=== PATIENT | female | born 1975 | race Caucasian/White ===

== ENCOUNTER 2016-10-01 17:31 | Emergency (ER) | payer OTHER ==
--- NOTE | ~2016-10-01 | EKG ---
PATIENT: TIMMY MOTA UNIT #: [id number] Ventricular Rate: 125 BPM Atrial Rate: 125 BPM P-R Interval: 148 ms QRS Duration: 70 ms Q-T Interval: 304 ms QTC Calculation(Bezet): 438 ms P [place]: 49 degrees Calculated R [place]: 6 degrees Calculated T [place]: 47 degrees Diagnosis Line: Sinus tachycardia Diagnosis Line: Otherwise normal ECG Diagnosis Line: When compared with ECG of 16-SEP-2014 16:55, Diagnosis Line: No significant change was found Diagnosis Line: Confirmed by MITCHEL DUONG MD ([id number]) on 10/02/2016 Diagnosis Line: 8:25:48 PM INTERPRETING MD: AD EFRRO
--- NOTE | ~2016-10-01 | CT98 ---
[facility] A Service of [facility] RADIOLOGY TEXT RESULTS PATIENT: TIMMY MOTA LOCATION: [facility] : 75 UNIT #: [id number] AGE: [address]: Ayan Spain MD SEX: F ORDER DR: [id number] [facility] [address] [place], [place] [address] [id number] E MR#: [id number] Acc #: [id number] NAME: TIMMY MOTA : 1975 SEX: F STUDY DATE/TIME: 10/01/2016 19:30 UNIT: [facility] ROOM: STUDY DESCRIPTION: CT Lumbar Spine Wo Cont Attending Physician: Ayan Spain M.D. Ordering Physician: Mariah Wilburn M.D. Primary Care Physician: Primary Care Physician No MEDICAL IMAGING REPORT This report is preliminary unless electronic signature is present EXAM CT lumbar spine without contrast DATE: 10/01/2016 HISTORY Cannot walk since yesterday. Back pain. Left-side body weakness and ataxia. No documented injury. COMPARISON None. PROCEDURE 2 mm noncontrast axial images through the lumbar spine. Sagittal and coronal reformatted images were obtained. This CT exam was performed with one or more of the following radiation dose reduction techniques: automatic exposure control, adjustment of mA and/or kV according to patient size, and iterative reconstruction. FINDINGS No lumbar spine fracture or subluxation is seen. Disc space height appears preserved. No high-grade canal or foraminal stenosis is evident. Incidental note is made of a nonobstructing stone in the right upper renal pole measuring 4 mm. Cholecystectomy. What is thought to be a phlebolith is seen within the retroperitoneum of the right mid abdomen adjacent to it, but not definitely within the right ureter, and this is unchanged from 12/05/2014. Benign angiomyolipoma within the left mid kidney (Hounsfield units -30) measures about 1 cm and is unchanged from 12/05/2014 CT abdomen. IMPRESSION 1. Normal lumbar spine. [facility] A Service [facility] RADIOLOGY TEXT RESULTS PATIENT: TIMMY MOTA LOCATION: [facility] : 75 UNIT #: [id number] AGE: [address]: Ayan Spain MD SEX: F ORDER DR: 2. Benign left renal angiomyolipoma measuring about a centimeter. 3. Nonobstructing stone in the right upper renal pole measuring 4 mm. 4. Cholecystectomy. Dictated by... Kena Tsai M.D. THIS IS AN ELECTRONICALLY VERIFIED REPORT Kena Tsai M.D. at 10/02/2016 10:03 AM TYLER/stephanie TD: 10/01/2016 22:17 JOB #: [id number] MEDICAL IMAGING REPORT Page 1 of 1 COPY
--- NOTE | ~2016-10-01 | MR18 ---
[facility] A Service of [facility] RADIOLOGY TEXT RESULTS PATIENT: TIMMY MOTA LOCATION: [facility] : 75 UNIT #: [id number] AGE: [address]: Ayan Spain MD SEX: F ORDER DR: [id number] [facility] [address] [place], [place] [address] [id number] E MR#: [id number] Acc #: [id number] NAME: TIMMY MOTA : 1975 SEX: F STUDY DATE/TIME: 10/01/2016 22:47 UNIT: [facility] ROOM: STUDY DESCRIPTION: MR Brain Wo Contrast Attending Physician: Ayan Spain M.D. Ordering Physician: Mariah Wilburn M.D. Primary Care Physician: Primary Care Physician No MRI CENTER REPORT This report is preliminary unless electronic signature is present. EXAM MRI brain without contrast INDICATION Left foot drop since yesterday. Headache for the past week. PROCEDURE Multiplanar, multisequence MR imaging of the brain without the administration of contrast. COMPARISON None. FINDINGS No restricted diffusion. Normal brain volume. No acute hemorrhage. No midline shift, extraaxial fluid collection or hydrocephalus. Flow voids of major intracranial vessels are intact. A mucous retention cyst in the left maxillary sinus. No acute hemorrhage. IMPRESSION Mucous retention cyst in the left maxillary sinus. Otherwise negative MRI of the brain. Dictated by... Pete Smith M.D. THIS IS AN ELECTRONICALLY VERIFIED REPORT Pete Smith M.D. at 10/02/2016 10:26 PM EED/stephanie [facility] A Service of [facility] RADIOLOGY TEXT RESULTS PATIENT: TIMMY MOTA LOCATION: [facility] : 75 UNIT #: [id number] AGE: [address]: Ayan Spain MD SEX: F ORDER DR: TD: 10/02/2016 01:25 JOB #: [id number] MRI CENTER REPORT Page 1 of 1 COPY
--- NOTE | ~2016-10-01 | CT122 ---
[facility] A Service of [facility] RADIOLOGY TEXT RESULTS PATIENT: TIMMY MOTA LOCATION: [facility] : 75 UNIT #: [id number] AGE: [address]: Ayan Spain MD SEX: F ORDER DR: [id number] [place] [id number] [facility] [place], [place] [address] [id number] E MR#: [id number] Acc #: [id number] NAME: TIMMY MOTA : 1975 SEX: F STUDY DATE/TIME: 10/01/2016 19:30 UNIT: [facility] ROOM: STUDY DESCRIPTION: CT Thoracic Spine Wo Cont Attending Physician: Ayan Spain M.D. Ordering Physician: Mariah Wilburn M.D. Primary Care Physician: Primary Care Physician No MEDICAL IMAGING REPORT This report is preliminary unless electronic signature is present EXAM CT thoracic spine without contrast DATE 10/01/2016 HISTORY Cannot walk since yesterday. Back pain. Left side body weakness and ataxia. No documented injury. COMPARISON None. TECHNIQUE This CT exam was performed with one or more of the following radiation dose reduction techniques: Automatic exposure control, adjustment of mA and/or kV according to patient size, and iterative reconstruction. FINDINGS No thoracic vertebral body fracture or subluxation. No suspicious osteolytic or osteoblastic lesions are identified. No definite high-grade canal stenosis is visualized. Incidental note is made of cholecystectomy and a small, nonobstructing right renal stone. IMPRESSION 1. Normal thoracic spine. 2. Cholecystectomy and small nonobstructing right renal stone. Dictated by... Kena Tsai M.D. THIS IS AN ELECTRONICALLY VERIFIED REPORT [facility] A Service of [facility] RADIOLOGY TEXT RESULTS PATIENT: TIMMY MOTA LOCATION: [facility] : 75 UNIT #: [id number] AGE: [address]: Ayan Spain MD SEX: F ORDER DR: Kena Tsai M.D. at 10/02/2016 10:03 AM TYLER/savage TD: 10/01/2016 22:18 JOB #: [id number] MEDICAL IMAGING REPORT Page 1 of 1 COPY
--- NOTE | ~2016-10-01 | CR169 ---
[facility] A Service of [facility] RADIOLOGY TEXT RESULTS PATIENT: TIMMY MOTA LOCATION: [facility] : 75 UNIT #: [id number] AGE: [address]: Ayan Spain MD SEX: F ORDER DR: [id number] [facility] [address] [place], [place] [address] [id number] E MR#: [id number] Acc #: [id number] NAME: TIMMY MOTA : 1975 SEX: F STUDY DATE/TIME: 10/01/2016 21:22 UNIT: [facility] ROOM: STUDY DESCRIPTION: CR Knee 2 Views Lt Attending Physician: Ayan Spain M.D. Ordering Physician: Mariah Wilburn M.D. Primary Care Physician: Primary Care Physician No MEDICAL IMAGING REPORT This report is preliminary unless electronic signature is present EXAM Left knee series dated 10/01/2016. COMPARISON None. HISTORY Left knee pain and discomfort since yesterday. Difficulty walking. FINDINGS Two views of the left knee were obtained. AP and lateral projection of the knee shows smooth articular anatomy without indication of fracture or dislocation at the major weight-bearing surface of the knee. There is no indication of radiopaque foreign body about the knee surface or joint effusion. IMPRESSION Normal knee. Dictated by... Emir Ontiveros M.D. THIS IS AN ELECTRONICALLY VERIFIED REPORT Emir Ontiveros M.D. at 10/02/2016 2:26 PM CPR/psc TD: 10/01/2016 23:47 JOB #: [id number] MEDICAL IMAGING REPORT [facility] A Service of [facility] RADIOLOGY TEXT RESULTS PATIENT: TIMMY MOTA LOCATION: [facility] : 75 UNIT #: [id number] AGE: [address]: Ayan Spain MD SEX: F ORDER DR: Page 1 of 1 COPY
--- NOTE | ~2016-10-01 | MR113 ---
[facility] A Service of [facility] RADIOLOGY TEXT RESULTS PATIENT: TIMMY MOTA LOCATION: [facility] : 75 UNIT #: [id number] AGE: [address]: Ayan Spain MD SEX: F ORDER DR: [id number] [facility] [address] [place], [place] [address] [id number] E MR#: [id number] Acc #: [id number] NAME: TIMMY MOTA : 1975 SEX: F STUDY DATE/TIME: 10/01/2016 22:47 UNIT: [facility] ROOM: STUDY DESCRIPTION: MR Lumbar Wo Contrast Attending Physician: Ayan Spain M.D. Ordering Physician: Mariah Wilburn M.D. Primary Care Physician: Primary Care Physician No MRI CENTER REPORT This report is preliminary unless electronic signature is present. EXAM MRI lumbar spine without contrast INDICATION Left foot drop since yesterday. Concern for radiculopathy. PROCEDURE Multiplanar, multisequence MR imaging of the lumbar spine without the administration of contrast. COMPARISON None. FINDINGS Lumbar bodies have normal height. Alignment is preserved. Disc space signal is preserved. No paravertebral mass. Conus terminates at L1-L2 and has normal caliber and signal intensity. There is no central canal or neural foraminal narrowing in the lumbar spine. IMPRESSION Normal MRI of the lumbar spine. Dictated by... Pete Smith M.D. THIS IS AN ELECTRONICALLY VERIFIED REPORT Pete Smith M.D. at 10/02/2016 10:26 PM EED/ljd [facility] A Service [facility] RADIOLOGY TEXT RESULTS PATIENT: TIMMY MOTA LOCATION: [facility] : 75 UNIT #: [id number] AGE: [address]: Ayan Spain MD SEX: F ORDER DR: TD: 10/02/2016 01:23 JOB #: [id number] MRI CENTER REPORT Page 1 of 1 COPY
[~2016-10-01 17:31] MED LIST: ALBUTEROL17 GM INH; BACTRIM DS TABL1 TA1 PO; BACTRIM DS TABL1 TA2 PO; BENTYL10 MG DOB; FLOMAX0.4 M1 PO; GLUCOPHAGE500 M1 PO; GLUCOPHAGE500 MG PO; KEFLEX500 M1 PO; METFORMIN HCL500 M1 PO; PERCOCET 5-3251 TAB PO; PHENERGAN PR; PHENERGAN25 MG PO; VIBRAMYCIN100 M1 PO; VICODIN 5/1 TAB 5/50 PO; VICODIN 5/500 T1 TAB PO
[2016-10-01 18:59] LABS: POC - CKMB 1.3 ng/mL (0.0-7.9); POC - TROPONIN <0.05 ng/mL (<=0.05)
[2016-10-01 19:02] LABS: BASOPHIL# 0.1 X10e3 (0-0.3); BASOPHIL% 0.4 % (0-2.5); EOSINOPHIL# 0.1 X10e3 (0-0.7); HEMATOCRIT 49.1 % (35.0-45.0); HEMOGLOBIN 16.3 gm/dL (12.0-16.0); LYMPHOCYTE# 4.7 X10e3 (1.0-3.5); LYMPHOCYTE% 37.6 % (17.0-45.0); MEAN CELL VOLUME 88.7 FL (83-96); MEAN CORPUSCULAR HEMOGLOBIN 29.4 PG (28-34); MEAN CORPUSCULAR HGB CONC 33.1 g/dL (30-36); MEAN PLATELET VOLUME 9.1 FL (6.5-11.5); MONOCYTE# 0.9 X10e3 (0-1.0); NEUTROPHIL# 6.8 X10e3 (1.5-7.1); PLATELET COUNT 383 X10e3 (140-420); RED BLOOD COUNT 5.54 X10e (3.90-5.30); RED CELL DISTRIBUTION WIDTH 13.1 % (11.0-15.5); WHITE BLOOD COUNT 12.6 X10e3 (4.0-10.5)
[2016-10-01 19:07] LABS: DIFF IND NO
[2016-10-01 19:11] LABS: PARTIAL THROMBOPLASTIN TIME 26.5 SECONDS (23.5-31.3); PROTHROMBIN TIME (PATIENT) 10.7 SECONDS (10.0-11.7)
[2016-10-01 19:55] LABS: ALBUMIN SERUM 4.1 g/dL (3.5-5.0); ALKALINE PHOSPHATASE 123 U/L (32-92); ALT (SGPT) 20 U/L (10-40); AST (SGOT) 19 U/L (10-42); BILIRUBIN, DIRECT 0.1 mg/dL (0.0-0.2); BILIRUBIN,INDIRECT 0.2 mg/dL (0.0-0.9); BILIRUBIN,TOTAL 0.3 mg/dL (0.2-2.0); BLOOD UREA NITROGEN 11 mg/dL (9-23); CALCIUM SERUM 9.3 mg/dL (8.4-10.2); CARBON DIOXIDE 23 mmol/L (22-31); CHLORIDE 100 mmol/L (100-111); CREATININE SERUM 0.5 mg/dL (0.6-1.4); GLOM FILT RATE Estimated 120.2 mL/min (>60); GLUCOSE FASTING 316 mg/dL (70-110); MAGNESIUM 1.7 mg/dL (1.6-3.0); POTASSIUM 3.8 mmol/L (3.5-5.1); SODIUM 133 mmol/L (135-145)
[2016-10-01 19:56] LABS: ALCOHOL BLOOD <5 mg/dL (0)
[2016-10-01 23:08] LABS: URINE SOURCE CLEAN CATCH
[2016-10-01 23:12] LABS: URINE APPEARANCE CLEAR; URINE BILIRUBIN NEG (NEG); URINE BLOOD NEG (NEG); URINE COLOR YELLOW; URINE GLUCOSE >1000 MG/DL (NEG); URINE KETONE NEG (NEG); URINE LEUKOCYTE ESTERASE NEG (NEG); URINE NITRATE NEG (NEG); URINE PROTEIN NEG (NEG); URINE SPECIFIC GRAVITY 1.045 (1.003-1.035); URINE UROBILINOGEN 0.2 MG/DL (NEG)
[2016-10-01 23:20] LABS: CULTURE INDICATED? NO
[2016-10-01 23:22] LABS: AMPHETAMINE POS (NEG); BARBITURATES NEG (NEG); BENZODIAZEPINES NEG (NEG); COCAINE NEG (NEG); MARIJUANA NEG (NEG); OPIATES NEG (NEG); TRICYCLIC ANTIDEPRESSANTS NEG (NEG); U METHADONE NEG (NEG)
== END 2016-10-02 01:48 | disposition home or self-care (01) ==
LOC: CFTX 17:31 → CED 17:31
PROVIDERS: Student in an Organized Health Care Education/Training Program
DX: M21.372 Foot drop, left foot (principal); R20.2 Paresthesia of skin; E11.65 Type 2 diabetes mellitus with hyperglycemia; R51 Headache; F90.9 Attention-deficit hyperactivity disorder, unspecified type; F17.210 Nicotine dependence, cigarettes, uncomplicated; Z79.4 Long term (current) use of insulin; Z90.49 Acquired absence of other specified parts of digestive tract; Z90.710 Acquired absence of both cervix and uterus; Z86.14 Personal history of Methicillin resistant Staphylococcus aureus infection; Z88.5 Allergy status to narcotic agent
CPT/HCPCS: 29515; 36415; 70450; 70551; 72128; 72131; 72148; 73560; 80048; 80076; 80307; 81003; 82553; 82947; 83735; 83880; 84484; 84703; 85025; 85610; 85730; 93005; 96361; 96374; 96375; 99285; G0480; J1885; J2405